=== PATIENT | male | born 1995 | race Caucasian/White ===

== ENCOUNTER 2016-12-26 21:42 | Emergency (ER) | payer SELFPAY ==
[2016-12-26 21:45] VITALS: BP 159/100
[2016-12-26] MEDS ORDERED: HYDROCODONE/APAP 5/325MG TABLET. PO ONE (22:45)
[2016-12-26] MEDS ORDERED: HYDR-971 PO (22:47)
[2016-12-26] MEDS ORDERED: CIPR7.5D AS (22:47)
[2016-12-26] MEDS ORDERED: IBUP-1060 PO (22:47)
[2016-12-26] MEDS ORDERED: AMOX1TAB61 PO (22:47)
--- NOTE | 2016-12-26 22:47 | PHYS DOC ---
Past Medical History Past Medical History: Anxiety, Asthma Additional Past Medical Histor: MRSA ON ABD 2016 Past Surgical History: No Surgical History Alcohol Use: None Drug Use: None Adult General Chief Complaint Chief Complaint: EARACHE/EAR PAIN HPI HPI Patient is a 21 year old male with history of anxiety who presents with left ear pain with drainage that began 3 days ago. Patient states he has tried using Keflex and antibiotic eardrops he had from a previous prescription with no relief. Patient's also complaining of fevers. Review of Systems Review of Systems Constitutional: Fever Eyes: Denies change in visual acuity, redness, or eye pain [] HENT: Left ear pain with drainage Respiratory: Denies cough or shortness of breath [] Cardiovascular: No additional information not addressed in HPI [] GI: Denies abdominal pain, nausea, vomiting, bloody stools or diarrhea [] : Denies dysuria or hematuria [] Musculoskeletal: Denies back pain or joint pain [] Integument: Denies rash or skin lesions [] Neurologic: Denies headache, focal weakness or sensory changes [] Endocrine: Denies polyuria or polydipsia [] Current Medications Current Medications Current Medications Medications (Trade) Dose Ordered Sig/Fabiana Start Time Stop Time Status Last Admin Dose Admin Acetaminophen/ Hydrocodone Bitart (Lortab 5/325) 2 tab 1X ONCE 12/26/16 22:45 12/26/16 22:46 12/26/16 22:34 2 TAB Allergies Allergies Allergies Coded Allergies Type Severity Reaction Last Updated Verified No Known Drug Allergies 12/26/16 No Physical Exam Physical Exam Constitutional: Well developed, well nourished, no acute distress, non-toxic appearance. [] HENT: Normocephalic, atraumatic, bilateral external ears normal, oropharynx moist, no oral exudates, nose normal. [] Left ear canal is very erythematous and swollen, TM cannot be visualized, eardrops can be seen in the ear canal. Tragus is swollen and painful. Right TM appears moderately injected. Eyes: PERRLA, EOMI, conjunctiva normal, no discharge. [] Neck: Normal range of motion, no tenderness, supple, no stridor. [] Cardiovascular:Heart rate regular rhythm, no murmur [] Lungs & Thorax: Bilateral breath sounds clear to auscultation [] Abdomen: Bowel sounds normal, soft, no tenderness, no masses, no pulsatile masses. [] Skin: Warm, dry, no erythema, no rash. [] Back: No tenderness, no CVA tenderness. [] Extremities: No tenderness, no cyanosis, no clubbing, ROM intact, no edema. [] Neurologic: Alert and oriented X 3, normal motor function, normal sensory function, no focal deficits noted. [] Psychologic: Affect normal, judgement normal, mood normal. [] Current Patient Data Vital Signs Vital Signs Date Time Temp Pulse Resp B/P Pulse Ox O2 Delivery O2 Flow Rate FiO2 12/26/16 22:34 18 Room Air 12/26/16 21:45 100.0 100 97 100.0 EKG EKG [] Radiology/Procedures Radiology/Procedures [] Course & Med Decision Making Course & Med Decision Making Pertinent Labs and Imaging studies reviewed. (See chart for details) Patient has a fever, and left otitis externa, right otitis media. Discharged with Augmentin, ciprodex and [place] for pain. F/u with PCP in one week. Andrew Disclaimer Doreenon Disclaimer This electronic medical record was generated, in whole or in part, using a voice recognition dictation system. Departure Departure Impression: Primary Impression: Otitis externa of left ear Additional Impressions: Otitis media Fever Disposition: HOME, SELF-CARE Condition: STABLE Patient Instructions: Fever, Adult, Kwlk-il-[id number], Otitis Externa, Otitis Media , Adult Additional Instructions: You were seen for middle ear and inner ear infection. You also have a fever, take ibuprofen for fever. Take hydrocodone for pain. Use the prescribed antibiotics as ordered. Do not mix hydrocodone with Tylenol because both have Tylenol. Follow up with a doctor from the list provided in one week Scripts Ciprofloxacin Hcl/Dexameth (Ciprodex Otic Suspension)7.5 Ml Drops.susp4 Drop BID #7.5 ML Prov:MUTUNGA,IOANA [employer] DIRECT[employer] 12/26/16 Hydrocodone/Apap 5-325 ([place] 5-325 Tablet)1 Each Tablet1-2 Tab PO Q4-6HRS #20 TAB Prov:MUTUNGA,IOANA [employer] 12/26/16 Ibuprofen 800 Mg [id number] Mg PO PRN Q6HRS PRN INFLAMMATION #30 TAB Prov:MUTUNGA,OIANA [employer] DIRECT[employer] 12/26/16 Amoxicillin/Potassium Clav (Augmentin 875-125 Tablet)1 Each Tablet1 Tab PO BID # 20 TAB Prov:IOANA MCCLURE [employer] 12/26/16 Problem Qualifiers Primary Impression: Otitis externa of left ear Otitis externa type: unspecified type Chronicity: acute Qualified Code: H60.502 - Unspecified acute noninfective otitis externa, left ear Additional Impressions: Otitis media Otitis media type: other nonsuppurative Laterality: right Chronicity: acute Recurrence: not specified as recurrent Qualified Code: H65.191 - Other acute nonsuppurative otitis media, right ear Fever Fever type: unspecified Qualified Code: R50.9 - Fever, unspecified IOANA MCCLURE [employer] Dec 26, 2016 22:47
== END 2016-12-26 22:51 | disposition home or self-care (01) ==
LOC: ER 21:42
DX: H60.502 Unspecified acute noninfective otitis externa, left ear (principal); H65.191 Other acute nonsuppurative otitis media, right ear; R50.9 Fever, unspecified; J45.909 Unspecified asthma, uncomplicated
CPT/HCPCS: 99283

== ENCOUNTER 2017-04-11 21:20 | Emergency (ER) | payer SELFPAY ==
[~2017-04-11] VITALS: Ht 177.8 cm; Wt 162.4 kg
[~2017-04-11 21:20] MED LIST: AMOX1TAB61 PO; CIPR7.5D AS; HYDR-971 PO; IBUP-1060 PO
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
[2017-04-11 21:38] LABS: BASO # 0.2 x10^3/uL (0.0-0.2); BASO % 1 % (0-3); EOS % 1 % (0-3); HEMATOCRIT 40.4 % (39.0-53.0); HEMOGLOBIN 13.4 g/dL (13.0-17.5); LYMPH # 3.3 x10^3/uL (1.0-4.8); LYMPH % 19 % (24-48); MEAN CORPUSCULAR HEMOGLOBIN 28 pg (25-35); MEAN CORPUSCULAR HGB CONC 33 g/dL (31-37); MEAN CORPUSCULAR VOLUME 83 fL (79-100); MONO % 4 % (0-9); NEUT % 75 % (31-73); PLATELET COUNT 260 x10^3/uL (140-400); RED BLOOD COUNT 4.88 x10^6/uL (4.30-5.70); RED CELL DISTRIBUTION WIDTH 13.9 % (11.5-14.5)
[2017-04-11] MEDS ORDERED: CONTRAST GIVEN MC PRN (21:45)
[2017-04-11 21:50] LABS: CALCIUM 8.2 mg/dL (8.5-10.1); CREATININE 0.9 mg/dL (0.7-1.3); GFR 104.6; POTASSIUM 3.9 mmol/L (3.5-5.1)
[2017-04-11] MEDS ORDERED: IV NORMAL SALINE 1000ML BAG 1,000 ML IV ONE (22:00)
[2017-04-11] MEDS ORDERED: IOHEXOL 350 MG/ML 100 ML VIAL. IV ONE (22:00)
[2017-04-11 22:44] VITALS: BP 126/65
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
--- NOTE | 2017-04-12 06:07 | EKG ---
[facility] [address] [place] [address] Test Date: 2017-04-11 Test Time: 21:27:16 Pat Name: JENNIFER ARRIAGA Department: Room: Gender: M Side Laster Staple: : 1995 Requested By: TRACEY DONATO Order Number: [id number] Reading MD: Lorne Hilliard Measurements Intervals [place] Rate: 85 P: 35 MO: 164 QRS: 13 QRSD: 86 T: 6 QT: 352 QTc: 419 Interpretive Statements SINUS RHYTHM RI6.01 Unconfirmed report No previous ECG available for comparison Electronically Signed On 04-12-2017 16:49:37 CDT by Lorne Hilliard
--- NOTE | 2017-04-12 09:06 | RAD ---
AP chest radiograph 04/11/2017 Clinical indication: Chest pain Comparison: None. Findings: Cardiac and mediastinal silhouettes are within normal limits. No pleural effusion, pneumothorax or focal consolidation Impression: No acute cardiopulmonary abnormality.
== END 2017-04-11 23:12 | disposition home or self-care (01) ==
LOC: ER 21:20
DX: S02.2XXA Fracture of nasal bones, initial encounter for closed fracture (principal); R07.89 Other chest pain; R51 Headache; M54.2 Cervicalgia; R42 Dizziness and giddiness; F41.9 Anxiety disorder, unspecified; J45.909 Unspecified asthma, uncomplicated; X58.XXXA Exposure to other specified factors, initial encounter; Y93.89 Activity, other specified; Y92.89 Other specified places as the place of occurrence of the external cause; Y99.8 Other external cause status
CPT/HCPCS: 36415; 70496; 70498; 71010; 80048; 82962; 84484; 85027; 93005; 96360; 99285; J7030; Q9967

== ENCOUNTER 2017-08-14 17:10 | Emergency (ER) | payer BC ==
[~2017-08-14] VITALS: Ht 177.8 cm; Wt 158.8 kg
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
[2017-08-14] MEDS ORDERED: ACETAMINOPHEN 500 MG TABLET PO ONE (18:00)
[2017-08-14] MEDS ORDERED: IBUPROFEN 600 MG TABLET. PO ONE (18:00)
[2017-08-14 18:35] VITALS: BP 180/82
== END 2017-08-14 18:36 | disposition home or self-care (01) ==
LOC: ER 17:10
DX: S60.212A Contusion of left wrist, initial encounter (principal); S60.211A Contusion of right wrist, initial encounter; S60.052A Contusion of left little finger without damage to nail, initial encounter; S50.12XA Contusion of left forearm, initial encounter; F41.9 Anxiety disorder, unspecified; J45.909 Unspecified asthma, uncomplicated; Y00.XXXA Assault by blunt object, initial encounter; Y93.89 Activity, other specified; Y99.8 Other external cause status; Y92.89 Other specified places as the place of occurrence of the external cause
CPT/HCPCS: 99282; 99283

== ENCOUNTER 2018-02-08 07:46 | Emergency (ER) | payer SELFPAY, BC ==
[2018-02-08] MEDS: IPRATRPIUM/ALBUTEROL 0.5/2.5MG 3 ML NEBU. NEB (08:07)
[2018-02-08] MEDS: ACETAMINOPHEN 500 MG TABLET PO (08:15)
[2018-02-08] MEDS: IV NORMAL SALINE 1000ML BAG 1,000 ML IV ×2 (08:16→09:00)
[2018-02-08 08:53] LABS: ADD MAN DIFF? NO
[2018-02-08 08:59] LABS: BASO # 0.1 x10^3/uL (0.0-0.2); BASO % 1 % (0-3); EOS % 0 % (0-3); HEMATOCRIT 41.7 % (39.0-53.0); HEMOGLOBIN 14.3 g/dL (13.0-17.5); LYMPH # 1.2 x10^3/uL (1.0-4.8); LYMPH % 15 % (24-48); MEAN CORPUSCULAR HEMOGLOBIN 28 pg (25-35); MEAN CORPUSCULAR HGB CONC 34 g/dL (31-37); MEAN CORPUSCULAR VOLUME 82 fL (79-100); MONO # 0.5 x10^3/uL (0.0-1.1); MONO % 7 % (0-9); NEUT # 6.2 x10^3uL (1.8-7.7); NEUT % 77 % (31-73); PLATELET COUNT 125 x10^3/uL (140-400); RED CELL DISTRIBUTION WIDTH 14.7 % (11.5-14.5); WHITE BLOOD COUNT 8.1 x10^3/uL (4.0-11.0)
[2018-02-08] MEDS: DOXYCYCLINE HYCLATE 100 MG TABLET PO (09:07)
[2018-02-08 09:08] LABS: ANION GAP 12 (6-14); BLOOD UREA NITROGEN 14 mg/dL (8-26); BUN/CREATININE RATIO 13 (6-20); CALCIUM 7.8 mg/dL (8.5-10.1); CARBON DIOXIDE 25 mmol/L (21-32); CHLORIDE 96 mmol/L (98-107); CREATININE 1.1 mg/dL (0.7-1.3); GFR 82.2; GLUCOSE 123 mg/dL (70-99); POTASSIUM 3.9 mmol/L (3.5-5.1); SODIUM 133 mmol/L (136-145)
[2018-02-08 09:13] LABS: ALBUMIN 3.2 g/dL (3.4-5.0); ALK PHOS 57 U/L (46-116); ALT (SGPT) 55 U/L (16-63); AST (SGOT) 50 U/L (15-37); TOTAL BILIRUBIN 0.6 mg/dL (0.2-1.0); TOTAL PROTEIN 6.4 g/dL (6.4-8.2)
[2018-02-08 09:16] LABS: LACTIC ACID 1.4 mmol/L (0.4-2.0)
[2018-02-08 09:17] LABS: TROPONINI < 0.017 ng/mL (0.000-0.055)
[2018-02-08 09:28] LABS: NEGATIVE OBC STREP NEG; POSITIVE OBC STREP POS
[2018-02-08 09:53] LABS: BILIRUBIN,URINE NEGATIVE (NEG); CLARITY,URINE CLEAR; COLOR,URINE YELLOW; GLUCOSE,URINE NEGATIVE (NEG); NITRITE,URINE NEGATIVE (NEG); PH,URINE 6.5; PROTEIN,URINE NEGATIVE (NEG-TRACE)
[2018-02-08 10:05] LABS: HYALINE CASTS, URINE FEW /HPF; SQUAMOUS EPITHELIAL CELL,UR FEW /LPF
[2018-02-08 10:06] LABS: BACTERIA,URINE FEW /HPF (0-FEW); RBC,URINE OCC /HPF (0-2)
== END 2018-02-08 11:21 | disposition home or self-care (01) ==
LOC: ER 07:46
DX: R50.9 Fever, unspecified (principal); R11.0 Nausea; R42 Dizziness and giddiness; R06.09 Other forms of dyspnea; R05 Cough; F41.9 Anxiety disorder, unspecified; J45.909 Unspecified asthma, uncomplicated
CPT/HCPCS: 36415; 71045; 80053; 81001; 83605; 84484; 85025; 87040; 87070; 87086; 87880; 93005; 94640; 96360; 96361; 96365; 99285; J0690; J7030; J7620